=== PATIENT | male | born 1995 | race Two or more races ===

== ENCOUNTER 2018-12-31 20:35 | Emergency (ER) | payer BC ==
[~2018-12-31] VITALS: Ht 180.3 cm; Wt 82.0 kg
[2018-12-31 20:43] VITALS: BP 108/61
== END 2018-12-31 21:36 | disposition home or self-care (01) ==
LOC: ER 20:36
DX: S93.401A Sprain of unspecified ligament of right ankle, initial encounter (principal); S90.31XA Contusion of right foot, initial encounter; F12.90 Cannabis use, unspecified, uncomplicated; Z88.0 Allergy status to penicillin; X50.1XXA Overexertion from prolonged static or awkward postures, initial encounter; Y93.39 Activity, other involving climbing, rappelling and jumping off; Y92.89 Other specified places as the place of occurrence of the external cause; Y99.8 Other external cause status
CPT/HCPCS: 29515; 73610; 99284

== ENCOUNTER 2019-01-10 09:52 | Emergency (ER) | payer BC ==
[~2019-01-10] VITALS: Ht 180.3 cm; Wt 73.8 kg
[2019-01-10 09:58] VITALS: BP 135/82
== END 2019-01-10 11:19 | disposition home or self-care (01) ==
LOC: ER 09:53
DX: M25.571 Pain in right ankle and joints of right foot (principal); F12.90 Cannabis use, unspecified, uncomplicated; Z88.0 Allergy status to penicillin
CPT/HCPCS: 99284